=== PATIENT | female | born 1950 | race Caucasian/White ===

== ENCOUNTER 2018-12-17 15:41 | Inpatient (IN) | payer OTHER ==
[~2018-12-17] VITALS: Ht 175.2 cm; Wt 69.5 kg
--- NOTE | ~2018-12-17 | EKG ---
[place], [place] ELECTROCARDIOGRAM REPORT NAME: FELISHA LAMAS V UNIT #: [id number] ROOM: 406 DOCTOR: COMPA DRAFT REPORT BIRTHDATE: [birth year] [facility] Test Date: 2018-12-17 Test Time: 22:05:08 Pat Name: FELISHA LAMAS Department: Room: 406 Gender: F Tavern Operator: Magdalene Weber : 1950 Requested By: ACE FERNANDEZ Order Number: [id number] Reading MD: Freddie Bianchi MD Measurements Intervals [place] Rate: 74 P: 66 VT: 182 QRS: 62 QRSD: 91 T: 51 QT: 402 QTc: 446 Interpretive Statements Sinus rhythm Abnormal R-wave progression, early transition No change from earlier ECG this date Electronically Signed On 12-18-2018 16:47:09 PST by Freddie Bianchi MD CM:EKGRPT:ELECTROCARDIOGRAM REPORT 04 1647 ACE CHATMAN DRAFT REPORT ACE FERNANDEZ MD
--- NOTE | ~2018-12-17 | EKG ---
[place], [place] ELECTROCARDIOGRAM REPORT NAME: FELISHA LAMAS V UNIT #: [id number] ROOM: 406 DOCTOR: COMPA DRAFT REPORT BIRTHDATE: [birth year] [facility] Test Date: 2018-12-17 Test Time: 15:45:03 Pat Name: FELISHA LAMAS Department: Room: 406 Gender: F Bolt Sorter: Magdalene Weber : 1950 Requested By: ACE FERNANDEZ Order Number: [id number] Reading MD: Freddie Bianchi MD Measurements Intervals [place] Rate: 132 P: [place]: QRS: 72 QRSD: 83 T: -73 QT: 286 QTc: 424 Interpretive Statements Atrial fibrillation with rapid ventricular response Repol abnrm diffuse leads, probably rate related No previous ECG available for comparison Electronically Signed On 12-18-2018 15:45:44 PST by Freddie Bianchi MD CM:EKGRPT:ELECTROCARDIOGRAM REPORT [id number] [id number] ACE CHATMAN DRAFT REPORT ACE FERNANDEZ MD
--- NOTE | ~2018-12-17 | EKG ---
[place], [place] ELECTROCARDIOGRAM REPORT NAME: FELISHA LAMAS V UNIT #: [id number] ROOM: 406 DOCTOR: COMPA DRAFT REPORT BIRTHDATE: [birth year] [facility] Test Date: 2018-12-17 Test Time: 18:33:51 Pat Name: FELISHA LAMAS Department: Room: 406 Gender: F Training Engineer: Magdalene Weber : 1950 Requested By: ACE FERNANDEZ Order Number: [id number] Reading MD: Freddie Bianchi MD Measurements Intervals [place] Rate: 85 P: 69 [place]: 149 QRS: 69 QRSD: 90 T: 45 QT: 377 QTc: 449 Interpretive Statements Sinus rhythm Abnormal R-wave progression, early transition Compared to earlier ECG this date Sinus rhythm has replaced atrial fibrillation Electronically Signed On 12-18-2018 16:44:28 PST by Freddie Bianchi MD CM:EKGRPT:ELECTROCARDIOGRAM REPORT [id number] ACE CHATMAN DRAFT REPORT ACE FERNANDEZ MD
[~2018-12-17 15:41] MED LIST: LIPITOR20 MG PO
[2018-12-17 15:43] VITALS: BP 124/102
[2018-12-17] MEDS ORDERED: ATORVASTATIN CA10 M1 PO (15:55)
[2018-12-17 15:56] VITALS: BP 122/78
[2018-12-17 16:02] LABS: BASO % 0.7 % (0.0-1.0); EOS # 0.1 10*3/uL (0.0-0.4); EOS % 0.8 % (1.0-4.0); HEMATOCRIT 44.9 % (37.0-47.0); LYMPH # 1.1 10*3/uL (1.3-4.4); LYMPH % 18.5 % (27.0-41.0); MEAN CELL VOLUME 94.3 fl (81.0-99.0); MEAN CORPUSCULAR HGB 31.5 pg (27.0-31.0); MEAN CORPUSCULAR HGB CONC 33.4 g/dl (33.0-37.0); MEAN PLATELET VOLUME 9.4 fl (9.6-12.3); MONO # 0.6 10*3/uL (0.1-1.0); MONO % 9.6 % (3.0-9.0); NEUT # 4.3 10*3/uL (2.3-7.9); NEUT % 70.2 % (47.0-73.0); PLATELET COUNT AUTOMATED 233 10*3/uL (130-400); RED BLOOD COUNT 4.76 10*6/uL (4.10-5.10); RED CELL DISTRI WIDTH 12.5 % (0-14.5); WHITE BLOOD COUNT 6.1 10*3/uL (4.8-10.8)
[2018-12-17 16:10] LABS: ACT PARTIAL THROMBO TIME 24.4 SECONDS (20.8-31.5)
[2018-12-17 16:23] LABS: ALBUMIN 4.2 gm/dl (3.1-4.5); ALKALINE PHOSPHATASE 74 U/L (45-117); BUN 18 mg/dl (7-24); CHLORIDE 101 mmol/L (98-107); CREATININE 0.91 mg/dL (0.55-1.02); POTASSIUM 3.4 mmol/L (3.5-5.1); SGOT/AST 15 IU/L (3-35); SGPT/ALT 18 U/L (12-78); SODIUM 138 mmol/L (136-145); TOTAL PROTEIN 8.4 gm/dL (6.4-8.2)
[2018-12-17 16:25] LABS: TROPONIN I < 0.015 ng/ml (<0.045)
[2018-12-17 16:26] VITALS: BP 140/78
[2018-12-17 16:36] LABS: BILIRUBIN NEGATIVE (NEGATIVE); BLOOD 1+ (NEGATIVE); CLARITY CLEAR (CLEAR); COLOR YELLOW (YELLOW); GLUCOSE NEGATIVE (NEGATIVE); KETONE 1+ (NEGATIVE); LEUKO ESTERASE NEGATIVE (NEGATIVE); NITRITE NEGATIVE (NEGATIVE); UROBILINOGEN 0.2 E.U./dl (0.2-1.0)
[2018-12-17 16:47] LABS: BACTERIA TRACE; WBC 0-2 wbc/hpf (0-5)
--- NOTE | 2018-12-17 17:41 | NUR ---
[facility] , under the services of MATHEUS Cabello DO with a diagnosis of AFIB. Chief complaint is DENIES C/O. Patient arrived via bed from ER. Monitor applied. Initial assessment completed. Vital signs taken and recorded. MATHEUS CABELLO DO notified of admission to the unit. Orders received. See assessment for past medical history, medications and allergies. Patient and/or family oriented to unit. [facility] visitation policy reviewed. Clothing/patient valuable form completed. JOLIE BARRON
--- NOTE | 2018-12-17 18:54 | NUR ---
NOTIFIED DR. MARQUEZ'S ANSWERING SERVICE OF CONSULT.
--- NOTE | 2018-12-17 19:12 | NUR ---
PATIENT SITTING UP IN BED WATCHING TV AND TALKING ON PHONE. DENIES ANY NEEDS OR COMPLAINTS AT THIS TIME. BED IS IN LOWEST POSITION WITH WHEELS LOCKED. CALL LIGHT IS WITHIN REACH. ENCOURAGED TO USE CALL LIGHT FOR NEEDS. WILL CONTINUE TO MONITOR.
[2018-12-17 20:00] VITALS: BP 137/53
[2018-12-18] VITALS: BP 115/62
--- NOTE | 2018-12-18 02:13 | NUR ---
PATIENT RESTING IN BED ON BACK WITH EYES CLOSED RESPIRATIONS ARE EASY AND REGULAR. NO DISTRESS IS NOTED. CALL LIGHT IS WITHIN REACH. WILL CONTINUE TO MONITOR.
[2018-12-18 06:04] LABS: BASO % 0.8 % (0.0-1.0); EOS # 0.1 10*3/uL (0.0-0.4); EOS % 1.8 % (1.0-4.0); HEMATOCRIT 44.2 % (37.0-47.0); HEMOGLOBIN 14.6 g/dl (12.0-16.0); LYMPH # 1.6 10*3/uL (1.3-4.4); LYMPH % 31.9 % (27.0-41.0); MEAN CELL VOLUME 95.1 fl (81.0-99.0); MEAN CORPUSCULAR HGB 31.4 pg (27.0-31.0); MEAN PLATELET VOLUME 9.4 fl (9.6-12.3); MONO # 0.6 10*3/uL (0.1-1.0); MONO % 11.6 % (3.0-9.0); NEUT # 2.7 10*3/uL (2.3-7.9); NEUT % 53.7 % (47.0-73.0); PLATELET COUNT AUTOMATED 228 10*3/uL (130-400); RED BLOOD COUNT 4.65 10*6/uL (4.10-5.10); RED CELL DISTRI WIDTH 12.7 % (0-14.5)
[2018-12-18 06:30] LABS: BUN 16 mg/dl (7-24); CHLORIDE 105 mmol/L (98-107); CHOLESTEROL 169 mg/dL (<200); CREATININE 0.81 mg/dL (0.55-1.02); FREE T4 1.12 ng/dl (0.76-1.46); HDL CHOLESTEROL 68 mg/dl (40-60); LDL CHOLESTEROL 85 mg/dL (9-159); PHOSPHOROUS 3.3 mg/dL (2.5-4.9); POTASSIUM 3.8 mmol/L (3.5-5.1); SODIUM 139 mmol/L (136-145); TRIGLYCERIDES 79 mg/dl (<150); VLDL CHOLESTEROL 16 mg/dL (6-40)
[2018-12-18 08:00] VITALS: BP 122/80
[2018-12-18 08:26] LABS: VITAMIN D, 25-HYDROXY 41.3 ng/mL (30-100)
--- NOTE | 2018-12-18 09:00 | NUR ---
Maintainability Engineer in to talk to patient. Patient states lives at home with alone. There are few steps in the home. Physician: hiro Pharmacy: [facility] Home health services: none Patient's level of ADLs: INDEPENDENT Patient has working utilities: all working DME: none Follow-up physician's appointment after d/c: will be made by hospitalist nurse director upon discharge Does patient want to access PORTAL?: no Discharge plan discussed with patient, patient lives at home alone, she states she is independent in adls and ambulation, patient states she will be going home when able and denies any home needs. RADHA PRADO
--- NOTE | 2018-12-18 10:34 | NUR ---
Patient not available for Occupational Therapy evaluation as she is with the physician. Osiris Haq OTR/l
--- NOTE | 2018-12-18 10:41 | NUR ---
PHYSICAL THERAPY PAtient with doctor at this time. Roslyn Orta,PT
--- NOTE | 2018-12-18 11:31 | NUR ---
Occupational Therapy screen completed this date. Patient insists she is independent in all ADLs, functional mobility and does not need an OT evalaution. Discharge OT referral. Thank you for this referral. Osiris Haq OTR/herrera
--- NOTE | 2018-12-18 11:47 | NUR ---
PHYSICAL THERAPY PAtient reports she is (I) with all mobility and has no PT needs. Will d/c PT orders. Thank you for this referral. Roslyn Orta,PT
[2018-12-18 12:00] VITALS: BP 143/75
[2018-12-18] MEDS ORDERED: XARE20MG PO (14:50)
[2018-12-18] MEDS ORDERED: METOPROLOL SUCC25 M2 PO (14:50)
--- NOTE | 2018-12-18 15:13 | NUR ---
Discharge instructions reviewed with patient. Patient receptive and verbalizes understanding. Follow-up care arranged. Written instructions given to patient. Pt is waiting on scripts to be filled by our pharmacy. They stated they will be ready about 4 pm. Notified pt of this. DANIELA WOMACK
--- NOTE | 2018-12-18 15:56 | NUR ---
Pt left with belongings, dc instructions.
== END 2018-12-18 15:56 | disposition home or self-care (01) | DRG 205 ==
LOC: ED 15:41 → 4E 16:32 → EDHOLD 16:32 → 4E 16:46
PROVIDERS: Emergency Medicine; Internal Medicine Nephrology; ADMIT Internal Medicine
DX: M94.0 Chondrocostal junction syndrome [Tietze] (principal); J18.9 Pneumonia, unspecified organism; F41.0 Panic disorder [episodic paroxysmal anxiety]; K21.9 Gastro-esophageal reflux disease without esophagitis; E83.41 Hypermagnesemia; E74.39 Other disorders of intestinal carbohydrate absorption; I48.91 Unspecified atrial fibrillation; E87.6 Hypokalemia; R73.9 Hyperglycemia, unspecified; E78.5 Hyperlipidemia, unspecified; Z79.899 Other long term (current) drug therapy; Z81.8 Family history of other mental and behavioral disorders

== ENCOUNTER → 2019-01-17 | Outpatient (CLI) | payer OTHER ==
[~2019-01-17] MED LIST changes: +ATORVASTATIN CA10 M1 PO; +METOPROLOL SUCC25 M2 PO; +XARE20MG PO
== END | disposition home or self-care (01) ==
LOC: RESCLI 10:50
DX: I48.0 Paroxysmal atrial fibrillation (principal); E78.5 Hyperlipidemia, unspecified; F41.0 Panic disorder [episodic paroxysmal anxiety]; E55.9 Vitamin D deficiency, unspecified; F41.9 Anxiety disorder, unspecified

== ENCOUNTER → 2019-04-03 | Outpatient (CLI) | payer OTHER | END | disposition home or self-care (01) | LOC: RAD 10:50 | DX: M25.562 Pain in left knee (principal) ==

== ENCOUNTER → 2019-06-18 | Outpatient (CLI) | payer OTHER | END | disposition home or self-care (01) | LOC: RESCLI 08:15 | DX: I48.0 Paroxysmal atrial fibrillation (principal); E78.5 Hyperlipidemia, unspecified; E55.9 Vitamin D deficiency, unspecified; F41.0 Panic disorder [episodic paroxysmal anxiety] ==

== ENCOUNTER → 2019-09-18 | Outpatient (CLI) | payer OTHER | END | disposition home or self-care (01) | LOC: RESCLI 00:22 | DX: I48.0 Paroxysmal atrial fibrillation (principal); E78.5 Hyperlipidemia, unspecified; E55.9 Vitamin D deficiency, unspecified; F41.0 Panic disorder [episodic paroxysmal anxiety]; Z79.899 Other long term (current) drug therapy; Z90.89 Acquired absence of other organs ==

== ENCOUNTER → 2020-04-16 | Outpatient (CLI) | payer OTHER | END | disposition home or self-care (01) | LOC: RESCLI 01:57 | DX: I48.0 Paroxysmal atrial fibrillation (principal); E78.5 Hyperlipidemia, unspecified; E55.9 Vitamin D deficiency, unspecified; F41.0 Panic disorder [episodic paroxysmal anxiety]; Z00.00 Encounter for general adult medical examination without abnormal findings; Z79.899 Other long term (current) drug therapy; Z98.890 Other specified postprocedural states ==

== ENCOUNTER → 2020-07-19 | Outpatient (CLI) | payer OTHER | END | disposition home or self-care (01) | LOC: RAD 13:12 | PROVIDERS: ATTEND Internal Medicine | DX: M20.11 Hallux valgus (acquired), right foot (principal); M21.611 Bunion of right foot ==

== ENCOUNTER → 2020-10-12 | Outpatient (CLI) | payer OTHER | END | disposition home or self-care (01) | LOC: RESCLI 00:40 | PROVIDERS: ATTEND Emergency Medicine | DX: I48.0 Paroxysmal atrial fibrillation (principal); E78.5 Hyperlipidemia, unspecified; E55.9 Vitamin D deficiency, unspecified; K21.9 Gastro-esophageal reflux disease without esophagitis; F41.9 Anxiety disorder, unspecified; Z79.899 Other long term (current) drug therapy; Z98.890 Other specified postprocedural states ==

== ENCOUNTER → 2021-04-07 | Outpatient (CLI) | payer OTHER | END | disposition home or self-care (01) | LOC: RESCLI 00:24 | PROVIDERS: ATTEND Internal Medicine | DX: I48.0 Paroxysmal atrial fibrillation (principal); E78.5 Hyperlipidemia, unspecified; E55.9 Vitamin D deficiency, unspecified; K21.9 Gastro-esophageal reflux disease without esophagitis; F41.9 Anxiety disorder, unspecified; J30.2 Other seasonal allergic rhinitis; M51.26 Other intervertebral disc displacement, lumbar region; Z79.899 Other long term (current) drug therapy; Z98.890 Other specified postprocedural states ==

== ENCOUNTER → 2021-11-02 | Day surgery (SDC) | payer OTHER ==
[~2021-11-02] VITALS: Ht 173.9 cm; Wt 72.6 kg
[~2021-11-02] MED LIST changes: +CO Q-1050 M1 PO; +FISH OIL 1,0001 EAC3 PO; +GOOD NEIGHBOR L10 MG PO; +GOOD SENSE ANTI25 MG PO; +OCUFLOX 0.3% 5 M5 ML OPH; +OMEPRAZOLE MAGN20 MG PO; +OYSCO 500-VIT1 EACH PO; +PRED FORTE5 ML OP; +TART CHERRY E1000 MG PO; +TYLENOL EXTRA500 MG PO; +VITAMIN C500 M4 PO; +VITAMIN D350 MC2 PO; +XANAX0.25 MG PO; +ZINC50 M3 PO
[2021-11-02 08:40] VITALS: BP 150/69
[2021-11-02 09:45] VITALS: BP 130/70
[2021-11-02 10:00] VITALS: BP 129/76
[2021-11-02 10:14] VITALS: BP 134/73
== END | disposition home or self-care (01) ==
LOC: SDC 10-28 11:00
PROVIDERS: ATTEND Ophthalmology
DX: H25.811 Combined forms of age-related cataract, right eye (principal); I10 Essential (primary) hypertension; I48.91 Unspecified atrial fibrillation; Z79.899 Other long term (current) drug therapy; Z20.822 Contact with and (suspected) exposure to COVID-19

== ENCOUNTER → 2021-11-30 | Day surgery (SDC) | payer OTHER ==
[~2021-11-30] VITALS: Ht 172.7 cm; Wt 72.6 kg
[2021-11-30 09:35] VITALS: BP 155/85
[2021-11-30 11:32] VITALS: BP 150/80
[2021-11-30 11:45] VITALS: BP 143/77
[2021-11-30 11:58] VITALS: BP 145/81
== END | disposition home or self-care (01) ==
LOC: SDC 11-25 10:15
PROVIDERS: ATTEND Ophthalmology
DX: H25.812 Combined forms of age-related cataract, left eye (principal); I10 Essential (primary) hypertension; I48.91 Unspecified atrial fibrillation; Z79.899 Other long term (current) drug therapy; Z20.822 Contact with and (suspected) exposure to COVID-19

== ENCOUNTER → 2021-12-07 | Outpatient (CLI) | payer OTHER | END | disposition home or self-care (01) | LOC: RESCLI 00:56 | PROVIDERS: ATTEND Internal Medicine Nephrology | DX: I48.0 Paroxysmal atrial fibrillation (principal); E78.5 Hyperlipidemia, unspecified; E55.9 Vitamin D deficiency, unspecified; K21.9 Gastro-esophageal reflux disease without esophagitis; Z79.899 Other long term (current) drug therapy; Z98.890 Other specified postprocedural states ==

== ENCOUNTER → 2022-06-05 | Outpatient (CLI) | payer OTHER | END | disposition home or self-care (01) | LOC: RESCLI 01:07 | PROVIDERS: ATTEND Internal Medicine | DX: F41.0 Panic disorder [episodic paroxysmal anxiety] (principal); I48.0 Paroxysmal atrial fibrillation; E78.5 Hyperlipidemia, unspecified; E55.9 Vitamin D deficiency, unspecified; M51.26 Other intervertebral disc displacement, lumbar region; K21.9 Gastro-esophageal reflux disease without esophagitis; J30.2 Other seasonal allergic rhinitis; F41.9 Anxiety disorder, unspecified; E53.8 Deficiency of other specified B group vitamins; Z79.899 Other long term (current) drug therapy; Z79.01 Long term (current) use of anticoagulants ==

== ENCOUNTER → 2022-12-18 | Outpatient (CLI) | payer OTHER | END | disposition home or self-care (01) | LOC: RESCLI 01:09 | PROVIDERS: ATTEND Family Medicine | DX: E78.5 Hyperlipidemia, unspecified (principal); E55.9 Vitamin D deficiency, unspecified; I48.0 Paroxysmal atrial fibrillation; Z98.890 Other specified postprocedural states; Z79.899 Other long term (current) drug therapy ==

== ENCOUNTER → 2022-12-19 | Outpatient (CLI) | payer OTHER ==
[2022-12-19 10:30] LABS: BASO % 0.8 % (0.0-1.0); EOS # 0.1 10*3/uL (0.0-0.4); HEMATOCRIT 45.1 % (37.0-47.0); LYMPH # 1.2 10*3/uL (1.3-4.4); LYMPH % 30.1 % (27.0-41.0); MEAN CELL VOLUME 96.8 fl (81.0-99.0); MEAN CORPUSCULAR HGB 31.1 pg (27.0-31.0); MEAN CORPUSCULAR HGB CONC 32.2 g/dl (33.0-37.0); MEAN PLATELET VOLUME 9.1 fl (9.6-12.3); MONO # 0.5 10*3/uL (0.1-1.0); MONO % 11.5 % (3.0-9.0); NEUT # 2.2 10*3/uL (2.3-7.9); NEUT % 55.3 % (47.0-73.0); PLATELET COUNT AUTOMATED 204 10*3/uL (130-400); RED BLOOD COUNT 4.66 10*6/uL (4.10-5.10); RED CELL DISTRI WIDTH 12.8 % (0-14.5)
[2022-12-19 10:47] LABS: ALKALINE PHOSPHATASE 60 U/L (46-116); BUN 18 mg/dl (9-23); CHLORIDE 103 mmol/L (98-107); CHOLESTEROL 184 mg/dL (<200); LDL CHOLESTEROL 103 mg/dL (9-159); SGPT/ALT 13 U/L (10-49); TOTAL PROTEIN 7.4 gm/dL (6.0-8.0); TRIGLYCERIDES 103 mg/dl (<150)
== END | disposition home or self-care (01) ==
LOC: LAB 01:54
PROVIDERS: ATTEND Student in an Organized Health Care Education/Training Program
DX: E78.5 Hyperlipidemia, unspecified (principal); E55.9 Vitamin D deficiency, unspecified; Z79.899 Other long term (current) drug therapy

== ENCOUNTER → 2023-12-18 | Outpatient (CLI) | payer OTHER | END | disposition home or self-care (01) | LOC: RESCLI 01:14 | PROVIDERS: ATTEND Internal Medicine | DX: I48.0 Paroxysmal atrial fibrillation (principal); E78.5 Hyperlipidemia, unspecified; M51.26 Other intervertebral disc displacement, lumbar region; K21.9 Gastro-esophageal reflux disease without esophagitis; F41.9 Anxiety disorder, unspecified; E55.9 Vitamin D deficiency, unspecified; Z98.890 Other specified postprocedural states; Z79.01 Long term (current) use of anticoagulants; Z79.899 Other long term (current) drug therapy ==

== ENCOUNTER → 2023-12-19 | Outpatient (CLI) | payer MEDICARE ==
[2023-12-19 09:06] LABS: BASO % 0.5 % (0.0-1.0); EOS # 0.1 10*3/uL (0.0-0.4); EOS % 1.6 % (1.0-4.0); LYMPH # 1.3 10*3/uL (1.3-4.4); LYMPH % 29.1 % (27.0-41.0); MEAN CELL VOLUME 96.8 fl (81.0-99.0); MEAN CORPUSCULAR HGB 30.8 pg (27.0-31.0); MEAN CORPUSCULAR HGB CONC 31.8 g/dl (33.0-37.0); MEAN PLATELET VOLUME 8.8 fl (9.6-12.3); MONO # 0.6 10*3/uL (0.1-1.0); MONO % 12.5 % (3.0-9.0); NEUT # 2.5 10*3/uL (2.3-7.9); NEUT % 56.1 % (47.0-73.0); PLATELET COUNT AUTOMATED 181 10*3/uL (130-400); RED BLOOD COUNT 4.65 10*6/uL (4.10-5.10); RED CELL DISTRI WIDTH 12.6 % (0-14.5); WHITE BLOOD COUNT 4.4 10*3/uL (4.8-10.8)
[2023-12-19 09:42] LABS: ALKALINE PHOSPHATASE 70 U/L (46-116); BUN 17 mg/dl (9-23); CHLORIDE 105 mmol/L (98-107); CHOLESTEROL 179 mg/dL (<200); LDL CHOLESTEROL 101 mg/dL (9-159); POTASSIUM 4.2 mmol/L (3.4-5.1); SGPT/ALT 10 U/L (5-49); TOTAL PROTEIN 7.2 gm/dL (6.0-8.0); TRIGLYCERIDES 86 mg/dl (<150)
== END | disposition home or self-care (01) ==
LOC: LAB 04:17
PROVIDERS: Student in an Organized Health Care Education/Training Program; ATTEND Internal Medicine
DX: Z00.00 Encounter for general adult medical examination without abnormal findings (principal)

== ENCOUNTER 2024-03-10 03:14 | Emergency (ER) | payer MEDICARE ==
[2024-03-10 04:12] LABS: BASO % 0.4 % (0.0-1.0); EOS # 0.1 10*3/uL (0.0-0.4); EOS % 1.9 % (1.0-4.0); HEMATOCRIT 42.6 % (37.0-47.0); LYMPH # 1.1 10*3/uL (1.3-4.4); LYMPH % 23.1 % (27.0-41.0); MEAN CELL VOLUME 95.3 fl (81.0-99.0); MEAN CORPUSCULAR HGB 31.3 pg (27.0-31.0); MEAN CORPUSCULAR HGB CONC 32.9 g/dl (33.0-37.0); MONO # 0.4 10*3/uL (0.1-1.0); MONO % 9.4 % (3.0-9.0); NEUT % 64.8 % (47.0-73.0); PLATELET COUNT AUTOMATED 172 10*3/uL (130-400); RED BLOOD COUNT 4.47 10*6/uL (4.10-5.10); RED CELL DISTRI WIDTH 12.3 % (0-14.5); WHITE BLOOD COUNT 4.7 10*3/uL (4.8-10.8)
[2024-03-10 04:34] LABS: ALKALINE PHOSPHATASE 81 U/L (46-116); BUN 12 mg/dl (9-23); CHLORIDE 107 mmol/L (98-107); POTASSIUM 3.7 mmol/L (3.4-5.1); SGPT/ALT 14 U/L (5-49); TOTAL PROTEIN 6.9 gm/dL (6.0-8.0)
== END 2024-03-10 07:08 | disposition home or self-care (01) ==
LOC: ED 03:14
PROVIDERS: Emergency Medicine
DX: R00.0 Tachycardia, unspecified (principal); F41.9 Anxiety disorder, unspecified; R00.2 Palpitations; I48.91 Unspecified atrial fibrillation; E83.41 Hypermagnesemia; E87.6 Hypokalemia; E78.5 Hyperlipidemia, unspecified; I10 Essential (primary) hypertension; E78.00 Pure hypercholesterolemia, unspecified; Z90.49 Acquired absence of other specified parts of digestive tract; Z90.89 Acquired absence of other organs; Z98.890 Other specified postprocedural states